=== PATIENT | male | born 1955 | race Caucasian/White ===

== ENCOUNTER 2019-02-06 16:19 | Inpatient (IN) ==
[2019-02-06] MEDS ORDERED: ACETAMINOPHEN 325 MG TAB PO PRN (16:37)
[2019-02-06] MEDS ORDERED: ALUMINUM/MAGNESIUM SUSP 30 ML UDC PO PRN (16:37)
[2019-02-06] MEDS ORDERED: POLYETHYLENE (MIRALAX) 17 GM PACK PO PRN (16:37)
[2019-02-06] MEDS ORDERED: NITROGLYCERIN SL 0.4 MG/TAB TAB SL PRN (16:37)
[2019-02-06] MEDS ORDERED: MAGNESIUM HYDROXIDE SUSP 30 ML UDC PO PRN (16:37)
[2019-02-06] MEDS ORDERED: ONDANSETRON INJ 2 MG/ML 2 ML VIAL IV PRN (16:37)
--- NOTE | 2019-02-06 17:31 | Cardiology Consultation ---
Date of Consultation February 06, 2019 Assessment & Plan (1) NSTEMI (non-ST elevated myocardial infarction): (2) Dyslipidemia: Repeat EKG has been ordered and is currently pending. Patient is received 324 mg of aspirin to be chewed. Will start metoprolol tartrate 12.5 mg twice daily and titrate dose to appropriate heart rate and blood pressure as tolerated. Atorvastatin will be started given dyslipidemia and coronary heart disease. The patient's symptoms started 4 days ago, but he still had waxing and waning chest discomfort as recently as yesterday. Is highly sensitive troponin T was elevated, and his troponin I will be trended this admission. At this time, we will keep him n.p.o. after midnight. Although he is several days out from his initial symptoms, based on the findings thus far, I anticipate the best course of action is to proceed with definitive coronary angiography tomorrow for revascularization of territory that is felt to be viable. There is no indication for emergent cardiac catheterization right now. Will start IV fluid with normal saline at 75 mL/h at 10 PM tonight for preprocedure hydration. Patient is agreeable with this plan. Case discussed with Dr Rodriguez who has seen the patient in the office and referred him to the hospital for further treatment. Case discussed with Katie Alexander PA-C of the [facility] service. History of Present Illness Attending Physician: Jed Richards MD History of Present Illness Rashard Jama is a 63 year old male seen in cardiology consultation per the request of Fritz Ramsey PA-C of the [facility] service in inpatient cardiology evaluation for the evaluation of a non ST segment elevation myocardial infarctions. 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 He describes himself as being physically active. He lifts weights 3 times per week and he walks daily typically 3 miles walking up and down hill. A week ago, last Monday, he was performing a "Lat pulldown" exercise and felt that he strained a muscle in between his shoulder blades. He continued to feel musculoskeletal discomfort there when he transitioned to a tricep exercise, and therefore he backed off. He still walks 3 miles that day and at that point felt well. The next day, 02/02/2019, he felt waxing and waning chest discomfort throughout the day at rest while watching television. The symptoms have persisted for the last week. He presented to his primary care provider yesterday 02/05/2019, and an EKG was performed at 8:10 AM with findings of sinus rhythm at 70 bpm with an age-indeterminate septal infarction pattern, Q waves noted in leads V1 and V2, with subtle inferior and lateral ST segment depression. Repeat EKG to be performed at this institution is currently pending. An Hs troponin T was performed as an outpt on 02/05/2019 which was elevated at 439 ng/ ml (normal 0-22 ng/ml). Patient was referred for outpatient cardiology assessment which took place this afternoon. At the time of presentation he was symptom-free. Resting echocardiogram performed today at 2:08 PM revealed severe hypokinesis to akinesis of the anterior and anteroseptal segments the mid apical levels with preserved LVEF in the range of 55 to 60%. No significant valvular pathology was noted. The patient was referred to the hospital for further assessment. During my review with him in room 2422 he was free of any chest pain. The patient's past medical history is notable for retention for which she takes amlodipine. His most recent lipid panel had been performed in August 2015 at which time his LDL cholesterol was elevated at 155 mg/dL. 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 Smoking Status: Former smoker Review of Systems Review of Systems: All systems reviewed & are unremarkable except as noted in HPI & below Physical Exam Physical Exam: Temp Pulse Resp BP Pulse Ox 36.8 C 83 18 134/91 97 02/06/19 17:08 02/06/19 17:08 02/06/19 17:08 02/06/19 17:08 02/06/19 17:08 Constitutional: WD/WN, vitals as above Neck: trachea midline, no thyromegaly Respiratory: normal respiratory effort, lungs clear to auscultation Cardiovascular: RRR, no murmur, no edema Extremities: no edema Skin: no rashes, warm and dry Neurologic: PERRL, EOMI, accommodation nl, no face palsy, no dysarthria
[2019-02-06 17:45] LABS: Basophils # (auto) 0.03 K/uL (0-0.2); Basophils % (auto) 0.3 %; Hematocrit (blood only) 42.2 % (42-52); Hemoglobin 15.6 g/dL (14.0-18.0); Immature Granulocytes # (auto) 0.04 K/uL (0.00-0.02); Immature Granulocytes % (auto) 0.4 %; Lymphocytes # (auto) 1.65 K/uL (1.2-3.4); Lymphocytes % (auto) 15.6 %; Mean Corpuscular Volume 84.2 fL (80-100); Mean Platelet Volume 9.3 fL (7.4-10.4); Monocytes # (auto) 0.41 K/uL (0.11-0.59); Monocytes % (auto) 3.9 %; Neutrophils # (auto) 8.42 K/uL (1.4-6.5); Neutrophils % (auto) 79.8 %; Platelet Count 325 K/uL (130-400); RDW Coefficient of Variation 13.2 % (11.5-14.5); RDW Standard Deviation 39.9 fL (36.4-46.3); Red Blood Count 5.01 M/uL (4.7-6.1); White Blood Count 10.55 K/uL (4.8-10.8)
[2019-02-06] MEDS ORDERED: ASPIRIN 81 MG CHEW PO ONE (17:45)
[2019-02-06] MEDS: PATIENT'S ALLERGY INFO NEEDS ENTERED SCH ×3 (17:53→20:30)
[2019-02-06 18:01] LABS: BUN Creatinine Ratio 15.5 (10-20); Calcium 9.1 mg/dl (8.5-10.1); Creatinine Clr Calc Pharmacy 65.2 ml/min; Est GFR (African American) 70.4; Est GFR (Non-African American) 60.7; Magnesium 2.2 mg/dl (1.8-2.4); Potassium 3.3 mmol/L (3.5-5.1)
[2019-02-06 18:05] LABS: Partial Thromboplastin Time 25.8 Seconds (21.0-31.0); Prothrombin Time 10.6 Seconds (9.0-12.0)
[2019-02-06 18:12] LABS: Bilirubin,Total 0.4 mg/dl (0.2-1); Globulin 4.2 gm/dl (2.5-4.0); Total Protein 8.2 gm/dl (6.4-8.2); Troponin I 0.381 ng/ml (0-0.045)
[2019-02-06] MEDS ORDERED: HEPARIN SODIUM/DEXTROSE 25,000 UNITS/500 ML BAG IV SCH (18:15)
--- NOTE | 2019-02-06 18:20 | XRay Report ---
XR chest 1V portable CLINICAL HISTORY: chest pain COMPARISON STUDY: No previous studies for comparison. FINDINGS: The bones soft tissues and hemidiaphragms are normal. The cardiomediastinal silhouette is n ormal. The lungs are clear. The pulmonary vasculature is normal. IMPRESSION: Negative chest. The above report was generated using voice recognition software. It may contain grammatical, syntax or spelling errors. Electronically signed by: Tristan Irby M.D. 02/06/2019 6:18 PM
[2019-02-06] MEDS ORDERED: POTASSIUM CHLORIDE 20 MEQ TABCR PO ONE (18:30)
--- NOTE | 2019-02-06 18:40 | History & Physical Report ---
Date of Service February 06, 2019 Assessment & Plan (1) NSTEMI (non-ST elevated myocardial infarction): This is a 63-year-old male who has a significant past medical history of HTN, HLD, allergic rhinitis who presents to [facility] as a direct admission from the cardiology office secondary to abnormal echocardiogram. Pt with hx of chest pain intermittent x 1 week Resting echo done as outpt revealed severe hypokinesis to akinesis of the anterior and anteroseptal segments the mid apical levels with preserved LVEF in the range of 55 to 60%. No significant valvular pathology was noted. Referred for direct admission repeat ECG NSR 70 bpm, septal infarct noted with q wave V2 ASA 324mg given x 1 Troponin elevated 0.381 Pt admitted to PCU ASA 324mg given start metoprolol tartrate 12.5mg bid High intensity statin initiated 40mg atorvastatin trend troponin I q6h IV heparin initiated NPO after midnight Cardiac cath to be performed in a.m. lipid panel, a1c in a.m. IVF 75cc/hr per cardiology (2) HTN (hypertension): blood pressure controlled on amlodipine (3) HLD (hyperlipidemia): diet controlled last lipid panel 2016 total chol 224, LDL 155 lipid panel in a.m. (4) DVT prophylaxis: continue heparin gtt SCD/TEDS Disposition: to be determined, likely d/c to home when able Follow up: PCP Dr. Bai upon discharge Patient was seen and examined in collaboration with Dr. Richards, please see addendum History of Present Illness Chief Complaint: Direct admission from cardiology office secondary to abnormal echocardiogram Primary Care Provider: Tapan Irvin MD This is a 63-year-old male who has a significant past medical history of HTN, HLD, allergic rhinitis who presents to [facility] as a direct admission from the cardiology office secondary to abnormal echocardiogram. Patient was initially seen by outpatient provider secondary to back pain for 1 week. There was also some concern for chest pain. A high-sensitivity troponin was ordered and a referral for echocardiogram. His troponin T was elevated at 439. Again referred for cardiac assessment which took place this afternoon. Resting echocardiogram performed today at 2:08pm revealed severe hypokinesis to akinesis of the anterior and anteroseptal segments the mid apical levels with preserved LVEF in the range of 55 to 60%. No significant valve pathology noted. Given above he was referred to hospital for direct admission. Currently patient is sitting up in bed and is asymptomatic. He reports 4 episodes of chest pain over the past week. Approximately a week ago he recalls performing a lat pull down exercise which he felt a muscle pull in his back. That next day he then noticed waxing and waning chest discomfort while at rest, radiated to back. He describes chest pain as a, "pulling sensation," not improved with Aleve or aspirin, made worse with movement, not exacerbated with deep breathing, no associated shortness of breath. His last episode was yesterday which lasted for approximately 15 minutes. He further denies any diaphoresis, palpitations, nausea, vomiting. Denies any recent illness, fever, chills, sweats, lightheadedness, dizziness, syncope, hemoptysis, abdominal pain, change in bowel or urinary habits. He is a very active individual walking 3 miles daily, including hills. He is retired but does maintain 5 acre property. He does not smoke or drink alcohol. Feels he is a pretty healthy balanced diet. He does have a family history of coronary artery disease in his father at the age of 70. Allergies Allergy/AdvReac Type Severity Reaction Status Date / Time No Known Allergies Allergy Unverified 02/06/19 17:37 Home Medications Home Medications Medication Instructions Recorded Confirmed Type amlodipine 10 mg PO DAILY 02/06/19 02/06/19 History fexofenadine [Nicole Allergy] 180 mg PO DAILY 02/06/19 02/06/19 History fluticasone propionate 2 spray INTRANASAL DAILY 02/06/19 02/06/19 History meloxicam 15 mg PO DAILY 02/06/19 02/06/19 History montelukast [Singulair] 10 mg PO DAILY 02/06/19 02/06/19 History Past Med/Surg History Medical History HLD (hyperlipidemia) HTN (hypertension) Surgical History History of tonsillectomy and adenoidectomy History of shoulder surgery Family History Mother Rheumatoid arthritis Father Myocardial infarction, Onset Age: 70 Social History Preferred Language: Mexican Communication Ability: Effective Certified Industrial Hygienist Required: No Beliefs That Will Affect Care: None Current Living Situation: Alone 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 Physical Exam Physical Exam: Constitutional: WD/WN, M, vitals as above, NAD, sitting up in bed, pleasant, conversing easily Head: Normocephalic, Atraumatic Eyes: PERRL, conjunctivae normal, anicteric sclerae ENMT: external ear and nose normal, oropharynx normal Neck: trachea midline, no thyromegaly normal visual inspection Respiratory: normal respiratory effort, lungs clear to auscultation, no wheeze, rales, rhonchi. Normal insp/exp effort, no accessory muscle use Cardiovascular: RRR, no murmur, no edema Vessels: no JVD or carotid bruit Chest: normal inspection of chest Abdomen: normal bowel sounds, soft, nontender, no hepatosplenomegaly Musculoskeletal: no cyanosis or clubbing, extremities motor strength 5/5 Skin: no rashes, warm and dry normal turgor Neurologic: PERRL, EOMI, accommodation nl, no face palsy, no dysarthria CN's II-XI intact bilaterally and moves all extremities Psychiatric: A+Ox3, euthymic affect Lymphatic: no cervical or axillary lymphadenopathy : deferred Results & Data Vital Signs (Past 12 Hours) Vital Signs Temp Pulse Pulse Resp BP Pulse Ox 02/06/19 17:08 36.8 C 83 18 134/91 97 02/06/19 17:03 90 Laboratory Results Short CBC 02/06/19 Range/Units 17:34 WBC 10.55 (4.8-10.8) K/uL Hgb 15.6 (14.0-18.0) g/dL Hct 42.2 (42-52) % Plt Count 325 (130-400) K/uL BMP 02/06/19 17:34 Sodium 140 Potassium 3.3 L Chloride 106 Carbon Dioxide 26 BUN 20 H Creatinine 1.26 Glucose 159 H Calcium 9.1 Cardiac Enzymes 02/06/19 Range/Units 17:34 Troponin I 0.381 H* (0-0.045) ng/ml Liver Function 02/06/19 Range/Units 17:34 Total Bilirubin 0.4 (0.2-1) mg/dl AST 20 (15-37) U/L ALT 30 (12-78) U/L Alkaline Phosphatase 62 (45-117) U/L Albumin 4.0 (3.4-5.0) gm/dl Diagnostic Findings CXR: IMPRESSION: Negative chest. Medications Administered Discontinued Medications Aspirin (Aspirin Chew) 324 mg PO ONE ONE Stop: 02/06/19 17:46 Last Admin: 02/06/19 17:58 Dose: 324 mg Documented by: [id number] Miscellaneous Information (Patient's Allergy Info Needs Entered) 1 ea N/A Q30M BENNY Stop: 03/08/19 16:44 Last Admin: 02/06/19 17:54 Dose: Not Given Documented by: [id number] Admin: 02/06/19 17:54 Dose: Not Given Documented by: [id number] Admin: 02/06/19 17:53 Dose: 1 ea Documented by: [id number] ECG Additional Comments: Per Dr. Washington: "EKG performed 02/06/2019 at 1748 and reviewed independently reveals normal sinus rhythm at 70 bpm, age-indeterminate septal infarction noted with Q waves in lead V2, mild lateral repolarization changes and T wave flattening, improved to a subtle degree compared to the outpatient EKG performed yesterday 02/05/2019. There is no ST segment elevation" Code Status & VTE Plan Code Status Full Code VTE Prophylaxis Plan VTE Prophylaxis will be ordered: Yes Supervising Physician Co-Signing Physician Notes Patient is a 63-year-old male with history of hypertension, hyperlipidemia and other problems presents for evaluation of abnormal echocardiogram. Patient is a direct admit to [facility] on recommendations from his associate genetics professor today. Patient states having intermittent retrosternal chest pain 1 week ago and had elevated high sensitivity troponin which prompted to get echocardiogram. Patient had been evaluated by his associate genetics professor as outpatient and resting echo suggestive of severe hypokinesis to akinesis of the anterior and antral septal segments. Patient is sent for further management of NSTEMI. Patient admits that his chest discomfort decreases with aspirin. Currently he is chest pain-free. Denies any associated shortness of breath. On exam patient is moderately built and nourished, normocephalic atraumatic, lungs are clear to auscultation, S1-S2, no murmur, abdomen soft nontender, grossly no focal neurological deficits, no pedal edema. Patient is admitted for management of NSTEMI. EKG showed no signs of ST elevation. Patient is started on aspirin, Lipitor, metoprolol and IV heparin. Will check lipid panel in a.m. Keep him n.p.o. for possible cardiac catheterization in a.m. Appreciate cardiology input. I personally reviewed the record. Patient is interviewed and examined at bedside. Patient's care is coordinated with Caryl Mcdowell PA-C. Please refer to the documentation above for details of patient's presentation and for discussion of other issues.
[2019-02-06] MEDS: METOPROLOL TARTRATE 25 MG TAB PO SCH (18:59)
[2019-02-06] MEDS: ATORVASTATIN 40 MG TAB PO SCH (19:01)
[2019-02-06] MEDS ORDERED: HEPARIN IV BOLUS 6,000 UNITS in SYRINGE 0 ML IV ONE (19:15)
[2019-02-06] MEDS ORDERED: POTASSIUM CHLORIDE 20 MEQ TABCR PO STA (19:38)
[2019-02-06] MEDS ORDERED: MONTELUKAST SODIUM 10 MG TABLET PO SCH (21:00)
[2019-02-06] MEDS ORDERED: ATORVASTATIN 20 MG TAB PO SCH (21:00)
[2019-02-06] MEDS: SODIUM CHLORIDE 0.9% 1000ML 1,000 ML IV SCH (22:46)
[2019-02-07 01:34] LABS: Hematocrit (blood only) 37.1 % (42-52); Hemoglobin 13.6 g/dL (14.0-18.0); Mean Corpuscular Hgb Conc 36.7 g/dL (32-36); Mean Corpuscular Volume 84.3 fL (80-100); Mean Platelet Volume 9.5 fL (7.4-10.4); Platelet Count 290 K/uL (130-400); RDW Standard Deviation 39.8 fL (36.4-46.3); White Blood Count 12.57 K/uL (4.8-10.8)
[2019-02-07 01:53] LABS: BUN Creatinine Ratio 18.9 (10-20); Calcium 8.7 mg/dl (8.5-10.1); Creatinine Clr Calc Pharmacy 70.8 ml/min; Est GFR (African American) 77.8; Est GFR (Non-African American) 67.1; Potassium 3.2 mmol/L (3.5-5.1)
[2019-02-07 01:57] LABS: Partial Thromboplastin Ratio 1.9
[2019-02-07 02:05] LABS: Partial Thromboplastin Time 52.5 Seconds (21.0-31.0)
[2019-02-07 05:56] LABS: Partial Thromboplastin Ratio 1.7
[2019-02-07 06:05] LABS: Partial Thromboplastin Time 45.9 Seconds (21.0-31.0)
[2019-02-07] MEDS ORDERED: HEPARIN IV BOLUS 3,000 UNITS in SYRINGE 0 ML IV ONE (06:15)
[2019-02-07 07:03] LABS: Estimated Average Glucose 126 mg/dl
[2019-02-07] MEDS: METOPROLOL TARTRATE 25 MG TAB PO SCH (08:01)
[2019-02-07] MEDS: ATORVASTATIN 40 MG TAB PO SCH (08:01)
[2019-02-07] MEDS ORDERED: FLUTICASONE PROPIONATE NA SPR 16 GM BTL SCH (09:00)
[2019-02-07] MEDS ORDERED: AMLODIPINE BESYLATE 5 MG TAB PO SCH (09:00)
[2019-02-07] MEDS ORDERED: ASPIRIN 81 MG ECTAB PO SCH (09:00)
--- NOTE | 2019-02-07 09:27 | Cardiology Progress Note ---
Date of Service February 07, 2019 Assessment & Plan (1) NSTEMI (non-ST elevated myocardial infarction): Continue ASA, metoprolol, amlodipine, atorvastatin. On UF heparin infusion. Plan for cardiac cath today. Has received NS at 75 mg/ hour overnight for hydration in anticipation of cardiac cath. (2) HTN (hypertension): continue metoprolol and amlodipine (3) Hypokalemia: Replace orally (4) DVT prophylaxis: on heparin. Subjective CC: follow up chest pain Subjective: David reports feeling well overnight last night and this am. No CP. Telemetry reveals SR without arrhythmia. Review of Systems Review of Systems: All systems reviewed & are unremarkable except as noted in HPI & below Physical Exam Physical Exam: Temp Pulse Resp BP Pulse Ox 36.5 C 66 18 135/76 98 02/07/19 07:13 02/07/19 07:13 02/07/19 07:13 02/07/19 07:13 02/07/19 07:13 Constitutional: WD/WN, vitals as above Respiratory: normal respiratory effort, lungs clear to auscultation Cardiovascular: RRR, no murmur, no edema Gastrointestinal (Abdomen): normal bowel sounds, soft, nontender, no hepatosplenomegaly Skin: no rashes, warm and dry Neurologic: patellar DTR's 2+ bilat, sensation intact Results & Data Laboratory Results Cardiac Enzymes 02/06/19 02/06/19 02/07/19 Range/Units 17:34 23:43 05:14 AST 20 (15-37) U/L Troponin I 0.381 H* 0.471 H* 0.616 H* (0-0.045) ng/ml Coagulation 02/06/19 02/07/19 02/07/19 Range/Units 17:34 01:17 05:14 PT 10.6 (9.0-12.0) Seconds APTT 25.8 52.5 H* 45.9 H* (21.0-31.0) Seconds Lipids 02/07/19 Range/Units 01:17 Triglycerides 101 (0-150) mg/dl Cholesterol 165 (0-200) mg/dl HDL Cholesterol 42 mg/dl Cholesterol/HDL Ratio 4 CBC 02/06/19 02/07/19 Range/Units 17:34 01:17 WBC 10.55 12.57 H (4.8-10.8) K/uL RBC 5.01 4.40 L (4.7-6.1) M/uL Hgb 15.6 13.6 L (14.0-18.0) g/dL Hct 42.2 37.1 L (42-52) % Plt Count 325 290 (130-400) K/uL Neut # (Auto) 8.42 H (1.4-6.5) K/uL Lymph # (Auto) 1.65 (1.2-3.4) K/uL Aiken # (Auto) 0.41 (0.11-0.59) K/uL Eos # (Auto) 0.00 (0-0.5) K/uL Baso # (Auto) 0.03 (0-0.2) K/uL Comprehensive Metabolic Panel 02/06/19 02/07/19 Range/Units 17:34 01:17 Sodium 140 141 (136-145) mmol/L Potassium 3.3 L 3.2 L (3.5-5.1) mmol/L Chloride 106 107 (98-107) mmol/L Carbon Dioxide 26 27 (21-32) mmol/L BUN 20 H 22 H (7-18) mg/dl Creatinine 1.26 1.16 (0.6-1.4) mg/dl Glucose 159 H 132 H (70-99) mg/dl Calcium 9.1 8.7 (8.5-10.1) mg/dl AST 20 (15-37) U/L ALT 30 (12-78) U/L Alkaline Phosphatase 62 (45-117) U/L Total Protein 8.2 (6.4-8.2) gm/dl Albumin 4.0 (3.4-5.0) gm/dl Intake and Output 02/06/19 02/07/19 02/07/19 22:59 06:59 14:59 Intake Total 120 / 414.75 294.75 / 414.75 Output Total 650 / 1850 1200 / 1850 200 / 200 Balance -530 / -1435.25 -905.25 / -1435.25 -200 / -200 Intake: IV 294.75 / 294.75 HEPARIN SODIUM/DEXTROSE 25,000 294.75 / 294.75 units In 500 ml @ 1,500 UNITS/ HR 30 mls/hr IV .[id number] BENNY Rx #:[id number] Oral 120 / 120 0 / 120 Output: Urine 650 / 1850 1200 / 1850 200 / 200 Other: Other Intake Source npo Weight 90.3 kg 90.7 kg Diagnostic Findings EKG this am reveals SR with age undetermined septal infarct patter in lead V2, and lateral repolarization changes (mild ST depression) Medications Administered Current Inpatient Medications Acetaminophen (Tylenol) 650 mg PO Q4H PRN PRN Reason: Pain or Fever Stop: 03/08/19 16:36 Al Hydrox/Mg Hydrox/Simethicone (Maalox) 15 ml PO Q4H PRN PRN Reason: Dyspepsia Stop: 03/08/19 16:36 Amlodipine Besylate (Norvasc) 10 mg PO DAILY [facility] Stop: 03/09/19 08:59 Last Admin: 02/07/19 08:02 Dose: 10 mg Documented by: Aspirin (Ecotrin Ectab) [facility] [place] Stop: 03/09/19 08:59 Last Admin: 02/07/19 08:02 Dose: 81 mg Documented by: Atorvastatin Calcium (Lipitor) 40 [facility] [place] Stop: 03/08/19 18:29 Last Admin: 02/07/19 08:01 Dose: 40 mg Documented by: Fluticasone Propionate (Flonase) 2 sprays NA DAILY [facility] Stop: 03/09/19 08:59 Last Admin: 02/07/19 08:03 Dose: 2 sprays Documented by: Heparin Sodium/Dextrose (Heparin Sodium/Dextrose) 25,000 units in 500 mls @ 30 mls/hr IV .[id number] [facility]; Protocol Stop: 03/08/19 18:14 Last Titration: 02/07/19 06:10 Dose: 1,500 units/hr, 30 mls/hr Documented by: Sodium Chloride (Nss 1000ml) 1,000 mls @ 75 mls/hr IV .[id number] [facility] Stop: 03/08/19 21:59 Last Admin: 02/06/19 22:46 Dose: 75 mls/hr Documented by: Magnesium Hydroxide (Milk Of Magnesia) 30 ml PO Q12H PRN PRN Reason: Constipation Stop: 03/08/19 16:36 Metoprolol Tartrate (Lopressor) 12.5 mg PO BID [facility] Stop: 03/08/19 17:59 Last Admin: 02/07/19 08:01 Dose: 12.5 mg Documented by: Montelukast Sodium (Singulair) 10 mg PO HS BENNY Stop: 03/08/19 20:59 Last Admin: 02/06/19 19:02 Dose: 10 mg Documented by: Nitroglycerin (Nitrostat) 0.4 mg SL UD PRN PRN Reason: Chest Pain Stop: 03/08/19 16:36 Last Admin: 02/06/19 20:00 Dose: 0.4 mg Documented by: Ondansetron HCl (Zofran) 4 mg IV Q6H PRN PRN Reason: Nausea Stop: 03/08/19 16:36 Polyethylene Glycol (Miralax Powder Packet) 17 gm PO DAILY PRN PRN Reason: Constipation Stop: 03/08/19 16:36 Potassium Chloride (Klor-Con M20) 40 meq PO NOW STA Stop: 02/07/19 09:23
[2019-02-07] MEDS ORDERED: POTASSIUM CHLORIDE 20 MEQ TABCR PO ONE (09:45)
[2019-02-07] MEDS ORDERED: NiCARDipine HCL INJ 2.5 MG/ML 10 ML AMP ONE (11:08)
[2019-02-07] MEDS ORDERED: NITROGLYCERIN/D5W 100MCG/ML 20ML SYR ONE (11:09)
[2019-02-07] MEDS ORDERED: HEPARIN (PORCINE) 1000 UNIT/ML 10 ML (CATH LAB USE ONLY) ONE (11:10)
[2019-02-07] MEDS ORDERED: fentaNYL citrate 100 MCG/2 ML VIAL ONE ×2 (11:10→12:08)
[2019-02-07] MEDS ORDERED: MIDAZOLAM HCL 1 MG/ML 2ML VIAL ONE ×2 (11:10→12:08)
--- NOTE | 2019-02-07 11:44 | Cardiology Consultation ---
Date of Consultation February 07, 2019 Assessment & Plan (1) NSTEMI (non-ST elevated myocardial infarction): Patient here with acute coronary syndrome. He has had elevated risk of adverse cardiac events and agree with proceeding with cardiac catheterization. Discussed risk, benefits, alternatives of procedure with patient and willing to proceed. Plan to perform procedure via right radial artery. Further recommendations pending findings. History of Present Illness Attending Physician: Everton Olivas MD History of Present Illness Mr. Wiley scott 63-year-old man with a history of hypertension admitted with new onset chest pain and elevated troponin. Patient being cared for by Dr. Washington from [facility] cardiology. Found to have EKG changes and apical wall motion abnormalities on echo and being treated for NSTEMI. Early invasive approach recommended and interventional cardiology consulted for cardiac catheterization. Allergies Allergy/AdvReac Type Severity Reaction Status Date / Time No Known Allergies Allergy Unverified 02/06/19 17:37 Home Medications Home Medications Medication Instructions Recorded Confirmed Type amlodipine 10 mg PO DAILY 02/06/19 02/06/19 History fexofenadine [Nicole Allergy] 180 mg PO DAILY 02/06/19 02/06/19 History fluticasone propionate 2 spray INTRANASAL DAILY 02/06/19 02/06/19 History montelukast [Singulair] 10 mg PO DAILY 02/06/19 02/06/19 History acetaminophen [Tylenol Extra 1,000 mg PO Q8H PRN #60 tab 02/07/19 Rx Strength] aspirin [Ecotrin Low Strength] 81 mg PO QAM #30 tab 02/07/19 Rx atorvastatin 80 mg PO DAILY #30 tab 02/07/19 Rx metoprolol succinate 25 mg PO QAM #30 tab 02/07/19 Rx potassium chloride 20 meq PO DAILY #30 tab 02/07/19 Rx Patient History Medical History HLD (hyperlipidemia) HTN (hypertension) Surgical History History of tonsillectomy and adenoidectomy History of shoulder surgery Family History Mother Rheumatoid arthritis Father Myocardial infarction, Onset Age: 70 Social History Preferred Language: Maldivian Communication Ability: Effective Classroom Instructional Aide Required: No Beliefs That Will Affect Care: None Current Living Situation: Alone 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 No JVD. Lungs: Clear to auscultation bilaterally, no rhonchi or wheezes Cardiac: Regular rate and rhythm, no murmurs, rubs or gallops. Vascular: 2+ radial, DP and PT pulses. No varicosities. Abdomen: Soft, nontender, nondistended, positive bowel sounds. Extremities: Well perfused, no peripheral edema Skin: No rashes or lesions. Neuro: Nonfocal Psych: Alert orient x3, normal affect and mood Results & Data Vital Signs (Past 12 Hours) Vital Signs Temp Pulse Pulse Resp BP Pulse Ox 02/07/19 11:11 36.5 C 58 L 18 142/82 H 99 02/07/19 07:13 36.5 C 66 18 135/76 98 02/07/19 02:59 36.6 C 62 17 128/79 97 02/07/19 01:27 76 PG Care Time/CCT Total # of Minutes Spent Total Time Spent with Patient: Total time spent is greater than 50% in coordination of care (as documented) at patient's floor/unit and/or counseling patient:
--- NOTE | 2019-02-07 11:45 | Pre Anesthesia Assessment ---
Date of Service February 07, 2019 Pre Sedation Assessment Vital Signs Temp Pulse Pulse Resp BP Pulse Ox 02/07/19 11:11 36.5 C 58 L 18 142/82 H 99 02/07/19 07:13 36.5 C 66 18 135/76 98 02/07/19 02:59 36.6 C 62 17 128/79 97 02/07/19 01:27 76 02/06/19 23:39 36.6 C 66 19 153/82 H 98 02/06/19 20:00 36.9 C 70 18 125/70 95 02/06/19 19:23 36.8 C 70 18 138/71 95 02/06/19 17:08 36.8 C 83 18 134/91 97 02/06/19 17:03 90 Cardiovascular RRR, no murmur, no edema Pre-Sedation Airway Assessment Smoking Status: Never smoker Hx Sleep Apnea: No Hx Difficult Intubation: No Short, Thick Neck: No Thyromental Distance: > or= 3.5 Finger Breadths Oral Cavity: + WNL Mallampati Class: III Procedure Planning Contraindications for Sedation: none Current Medications Reviewed: Yes Notes The planned sedation has been discussed with the patient. Informed Consent was obtained. I have identified the patient, determined the appropriateness of sedation and have assessed the patient immediately prior to the procedure. All medicine(s) and interventions are by my order.
--- NOTE | 2019-02-07 12:50 | Post Anesthesia Assessment ---
Date of Service February 07, 2019 Post Sedation Assessment Vital Signs Temp Pulse Pulse Resp BP Pulse Ox 02/07/19 11:11 36.5 C 58 L 18 142/82 H 99 02/07/19 07:13 36.5 C 66 18 135/76 98 02/07/19 02:59 36.6 C 62 17 128/79 97 02/07/19 01:27 76 02/06/19 23:39 36.6 C 66 19 153/82 H 98 02/06/19 20:00 36.9 C 70 18 125/70 95 02/06/19 19:23 36.8 C 70 18 138/71 95 02/06/19 17:08 36.8 C 83 18 134/91 97 02/06/19 17:03 90 Recovery Score Activity: Moves 4 extremities Respiration: Deep Breath/Cough Circulation: +/-20% PreAnes Value Consciousness: Fully Awake Oxygen Saturation: O2 needed for >90% Discharge Sedation Level of Care: Fast Track Phase II Post Sedation Plan On clinical assessment, the patient appears to have tolerated the sedation without complications. Patient is recovering as anticipated. Patient will continue to be monitored by nursing and may be discharged when sedation discharge criteria are met per below protocol. Upon Completions of procedure and additional 15 minutes continue every 5 minute vital signs and the P.A.R. score; then discharge to a Phase I or Fast Track to Phase II per the following guidelines: * Discharge Patient to appropriate Phase II area if PAR is 8 or greater or return to pre- procedure baseline. The post - procedure orders will be as directed. * If PAR score is less than 8 or not return to pre-procedure baseline then patient will follow Phase I monitoring till PAR is reached for Phase II. The Phase I may be done in procedure room or may call to secure a Phase I area. * If naloxone or flumazenil are used for reversal, hold in Phase I for continued monitoring from when last reversal dose was given for a minimum of 60 minutes or longer pending the nurse and/or physician discretion of patient condition before discharge to Phase II. Please call the Sedation Physician to re-evaluate and complete post-note for discharge to Phase II area. Do NOT discharge from procedure sedation or Phase 1 until post- sedation evaluation note is complete by procedure /sedation MD Sedation Discharge Instructions to be given to the patient at discharge to home.
--- NOTE | 2019-02-07 13:06 | Cardiac Catheterization ---
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 Cardiac Status Clinical evaluation leading to the procedure CAD Presenation: Non STEMI Anginal Classification: CCS IV Heart Failure: No Cardiogenic Shock within 24 Hours: No Cardiac Arrest within 24 Hours: No Imaging Studies Past 6 Months: Yes Diagnostic Physicians Name: Chance Tinajero MD Status: Elective Closure Device Percutaneous Entry Location: Radial Closure Device: Radial Band Recommendations: CABG Intraprocedure Events Significant Disection: No Perforation: No Cardiac Cath Procedure Full Procedure Date February 07, 2019 Pre-Procedure Diagnosis Pre-Procedure Diagnosis: Non STEMI AUC Score AUC Score: 7 Post-Procedure Diagnosis Post-Procedure Diagnosis: Severe CAD and Normal Intracardiac Pressures Procedure(s) Performed Procedure(s) Performed: Coronary Angiography, Left Heart Cath and IVUS Cement Mixer Chance Tinajero MD Civil Service Worker(s) Adryan Estimated Blood Loss Estimated Blood Loss: 10 Medication(s) Medication(s): Fentanyl, Heparin, Lidocaine 1%, Nicardipine, Nitroglycerin and Versed Summary of Findings Indication: NSTEMI Access: 6 Fr right radial artery Catheters: [place], EBU 3.5 guide Findings: LM -40% distal left main angiographically LAD -50 to 60% ostial to proximal LAD, 80% mid LAD at takeoff of large septal, distal luminal irregularities. Large 2nd diagonal subtotally occluded proximally. Distal vessel fills partially via left to right collaterals Circumflex -40-50% diffuse ostial/proximal disease. OM3 without significant disease. RCA -moderate caliber vessel, dominant, 30% ostial, diffuse 30-40% proximal to mid diffuse disease. 70% mid right PDA LVEDP -15 -- IVUS -- LM cannulated with EBU 3.5 guide Whisper wire placed into distal LAD Thread Spooler 50 wire placed into circumflex IVUS placed into mid LAD -- pullback revealed diffuse, calcified disease extending from proximal LAD back into LM. Severe ostial LAD with MLA < 4.0 mm2. Severe distal LM disease at bifurcation - MLA 4.9 mm2. Moderate eccentric proximal/mid LM plaque. Attempted to place IVUS catheter into circumflex but unable to pass around bend/ostium of circumflex. Post procedure angiography revealed no complications. Arterial Closure: TR band Summary: 1. Severe multivessel coronary artery disease -50% distal left main (IVUS at bifurcation 4.9 mm) Severe ostial LAD (MLA less than 4 mm), mid LAD 80% Subtotally occluded proximal 2nd diagonal, partially fills distally with [id number] collaterals 70% mid right PDA 2. Normal intracardiac filling pressure Recommendations: Recommend evaluation by the surgery for possible CABG Hemodynamics Rest Ao:: 107/60/82 Final Ao: 135/74/99 LV: -- Recommendations Recommendations: CABG Specimens Specimens: None Radiation Exposure (mGy) 2649 Contrast (mls) 150 Fluids (cc crystalloids) Fluids (cc crystalloids): 70 Drains Drains: none Anesthesia moderate Procedural Complication(s) None Disposition PCU
[2019-02-07] MEDS ORDERED: SODIUM CHLORIDE 0.9% 1000ML 1,000 ML IV SCH ×2 (13:15→22:00)
[2019-02-07] MEDS: SODIUM CHLORIDE 0.9% 1000ML 1,000 ML IV SCH (13:42)
[2019-02-07 14:14] LABS: Partial Thromboplastin Ratio > 5.1
[2019-02-07 14:56] LABS: Partial Thromboplastin Time > 139.0 Seconds (21.0-31.0)
--- NOTE | 2019-02-07 15:12 | Communication Note ---
Date of Service: February 07, 2019 Mr Jama Underwent cardiac catheterization at [facility] today for evaluation of a non-ST segment elevation myocardial infarct believed to have taken place on 02/02/2019. He has been found to have distal left main and multivessel coronary artery disease including a 50% distal left main stenosis that was found to be significant by intravascular ultrasound evaluation, with an area of 4.9 mm, an 80% mid LAD stenosis, subtotal occlusion of the second diagonal branch of the LAD which is a moderate sized vessel, and a 60-70% RPDA stenosis. I called and discussed the patient's case with Dr Anne of [facility] surgery by phone. The Patient adamantly declines further inpatient evaluation and is eager for discharge. He therefore declines hospital to hospital transfer for inpatient CT surgery consultation. Dr Anne offered to accommodate the patient with an outpatient appointment for consultation tomorrow, 02/08/19 or Monday02/11/19. I returned to the patient's bedside and discussed these options with him and his daughter , Li. Patient declined appointment for tomorrow and instead tells me he prefers 02/11/19. He is aware of the risk of delaying care ,including recurrent myocardial infarction with resultant severe disability and , however he prefer to go home and be seen on Monday. He is aware to call EMS should he have recurrence of symptoms. Discharge medications: Aspirin 81 mg daily Metoprolol succinate 25 mg daily. Amlodipine 10 mg by mouth daily. Atorvastatin 80 mg by mouth daily Potassium chloride 20 mg once by mouth daily Sublingual nitroglycerin 0.4 mg as needed for chest pain Josh Washington,
--- NOTE | 2019-02-07 16:36 | Communication Note ---
Date of Service: February 07, 2019 Admitted yesterday with chest pain, abnormal EKG, elevated troponin. EKG showed sinus rhythm and anterolateral ST changes suggesting ischemia. Echocardiogram performed in clinic the day of admission demonstrated severe hypokinesis to akinesis of the anterior and anteroseptal segments with overall LVEF of 55/60%. Cardiology consulted and patient was seen by Dr. Washington. Patient received aspirin, heparin, metoprolol, statin. Peak troponin I 0.616 and subsequently trended downward. Cardiac catheterization performed by Dr. Tinajero. Summary of cath findings: LM -40% distal left main angiographically LAD -50 to 60% ostial to proximal LAD, 80% mid LAD at takeoff of large septal, distal luminal irregularities. Large 2nd diagonal subtotally occluded pro ximally. Distal vessel fills partially via left to right collaterals Circumflex -40-50% diffuse ostial/proximal disease. OM3 without significant disease. RCA -moderate caliber vessel, dominant, 30% ostial, diffuse 30-40% proximal to mid diffuse disease. 70% mid right PDA Given multivessel coronary disease referral to [facility] recommended for evaluation for CABG. Please refer to Dr. Washington's documentation regarding his discussions with patient. In summary, patient declined emergent transfer to [facility] and also declined visit with CT surgery as outpatient tomorrow. He does agree to see CT surgery on Sunday 02/11. Dr. Washington explained the risks of delayed revascularization. Patient is very anxious to go home this afternoon. He needs a few days to sort things out and take care of some matters. Patient was upset and very anxious to go home immediately. He was not examined today by the undersigned; please refer to cardiology notes for today's physical exam. Patient discharged on aspirin, metoprolol, statin, nitroglycerin. Dual antiplatelet therapy with aspirin and clopidogrel was considered, but felt that risk up with the benefits in light of anticipated CABG. Patient was instructed to call 911 if he has chest pain that is not promptly relieved by rest and/or nitroglycerin.
--- NOTE | 2019-02-08 04:08 | Discharge Summary ---
Date of Service Date of Admission: 02/06/19 Date of Discharge: 02/07/19 Admission HPI Per Admitting Provider This is a 63-year-old male who has a significant past medical history of HTN, HLD, allergic rhinitis who presents to [facility] as a direct admission from the cardiology office secondary to abnormal echocardiogram. Patient was initially seen by outpatient provider secondary to back pain for 1 week. There was also some concern for chest pain. A high-sensitivity troponin was ordered and a referral for echocardiogram. His troponin T was elevated at 439. Again referred for cardiac assessment which took place this afternoon. Resting echocardiogram performed today at 2:08pm revealed severe hypokinesis to akinesis of the anterior and anteroseptal segments the mid apical levels with preserved LVEF in the range of 55 to 60%. No significant valve pathology noted. Given above he was referred to hospital for direct admission. Currently patient is sitting up in bed and is asymptomatic. He reports 4 episodes of chest pain over the past week. Approximately a week ago he recalls performing a lat pull down exercise which he felt a muscle pull in his back. That next day he then noticed waxing and waning chest discomfort while at rest, radiated to back. He describes chest pain as a, "pulling sensation," not improved with Aleve or aspirin, made worse with movement, not exacerbated with deep breathing, no associated shortness of breath. His last episode was yesterday which lasted for approximately 15 minutes. He further denies any diaphoresis, palpitations, nausea, vomiting. Denies any recent illness, fever, chills, sweats, lightheadedness, dizziness, syncope, hemoptysis, abdominal pain, change in bowel or urinary habits. He is a very active individual walking 3 miles daily, including hills. He is retired but does maintain 5 acre property. He does not smoke or drink alcohol. Feels he is a pretty healthy balanced diet. He does have a family history of coronary artery disease in his father at the age of 70. Principal Diagnosis non-ST elevation myocardial infarction multivessel coronary artery disease Discharge Data Allergies Allergy/AdvReac Type Severity Reaction Status Date / Time No Known Allergies Allergy Unverified 02/06/19 17:37 Consultations 02/06/19 16:37 Consult Cardiology Routine 02/07/19 09:27 Consult Cardiac Catheterization Routine Procedures Performed Operation Date: 02/07/19 11:30 Actual Procedures p Cath, Left with Cors and Vent - Hong Tinajero MD s Cineradiography w/Routine Exam - Hong Tinajero MD s IVUS Coronary Single Vessel - MD angie Zavaleta IVUS Coronary each ADDL Vessel - Hong Tinajero MD Ordered Studies 02/07/19 11:13 CL Cath Imgs for PACS use only Routine Hospital Course (1) NSTEMI (non-ST elevated myocardial infarction): Admitted with chest pain, abnormal EKG, elevated troponin. EKG showed sinus rhythm and anterolateral ST changes suggesting ischemia. Echocardiogram performed in clinic the day of admission demonstrated severe hypokinesis to akinesis of the anterior and anteroseptal segments with overall LVEF of 55/60%. Cardiology consulted and patient was seen by Dr. Washington. Patient received aspirin, heparin, metoprolol, statin. Peak troponin I 0.616 and subsequently trended downward. Cardiac catheterization performed by Dr. Tinajero. Summary of cath findings: LM -40% distal left main angiographically LAD -50 to 60% ostial to proximal LAD, 80% mid LAD at takeoff of large septal, distal luminal irregularities. Large 2nd diagonal subtotally occluded proximally. Distal vessel fills partially via left to right collaterals Circumflex -40-50% diffuse ostial/proximal disease. OM3 without significant disease. RCA -moderate caliber vessel, dominant, 30% ostial, diffuse 30-40% proximal to mid diffuse disease. 70% mid right PDA Given multivessel coronary disease referral to [facility] recommended for evaluation for CABG. Please refer to Dr. Washington's documentation regarding his discussions with patient. In summary, patient declined emergent transfer to [facility] and also declined visit with CT surgery as outpatient 02/08. He did agree to see CT surgery on Sunday 02/11. Dr. Washington explained the risks of delayed revascularization. Patient discharged on aspirin, metoprolol, statin, nitroglycerin. Dual antiplatelet therapy with aspirin and clopidogrel was considered, but felt that risk up with the benefits in light of anticipated CABG. Patient was instructed to call 911 if he has chest pain that is not promptly relieved by rest and/or nitroglycerin. Total Time Total Time Spent Total Time Spent (In Minutes): 25 Discharge Plan Discharge Items Patient Disposition: Home - Self-Care Reason For Visit: chest pain Discharge Diagnosis: heart attack Condition: Fair Discharge Goals: Decrease discomfort and Improve disease control Activity: As commented below Activity Comment: light activity only Non-emergency contact: Primary Care Provider, Hospitalist and Instrument Maker Call non-emergency contact if: you have any medication questions and your symptoms worsen Follow-up/Referrals: Tapan Irvin MD [Primary Care Provider] - Diet: Heart Healthy Addtl Provider Instructions: MEDICATION CHANGES: aspirin 81 mg daily helps prevent heart attacks metoprolol succinate (Toprol XL) 25 mg daily for heart and blood pressure atorvastatin (Lipitor) 80 mg daily for cholesterol potassium chloride 20 mEq daily for low potassium level nitroglycerin 0.4 mg under tongue as needed for chest pain call 911 if no relief Extra Strength Tylenol 2 pills every 8 hrs as needed for muscle / joint pain STOP meloxicam (Mobic) can increase risk of heart attack or stroke SUMMARY OF TEST RESULTS: Blood tests indicated that you had a heart attack, but there was not severe damage to the heart muscle. Heart catheterization showed blockage in multiple coronary arteries, some severe. LDL cholesterol was 103. PENDING TEST RESULTS: none RECOMMENDATIONS FOR FOLLOW-UP: CARDIAC SURGERY [facility] 02/11/2019 8:45 AM Vasile Anne MD OTHER INSTRUCTIONS: Seek medical attention if you have: * temperature above 101 * chest pain or trouble breathing * abdominal pain, nausea, vomiting * diarrhea, dark stools or bloody stools * any unanswered questions or concerns Call 911 if symptoms are severe. Please take good care of yourself. Call if you have any questions or problems. You can reach a [facility] hospitalist on duty at [facility] 24 hours a day by calling [phone]. My cell # is [phone]. ACTIVITY RECOMMENDATIONS: Excess manipulation of the wrist should be avoided for the next 24-48 hours. * No lifting over 2 pounds (approximately a 1/2 gallon of milk) with the utilized arm for 24 hours. * No strenuous activity such as bowling or tennis for 3 days. * Keep the site of the procedure covered with a bandage for 24 hours. *You may shower the day after the procedure. Do not take a tub bath or submerge the puncture site in water for the next 3 days. *Do not operate any motorized equipment for 3 days. SPECIAL CARE INSTRUCTIONS: The site may be slightly bruised and sore following your procedure. Should any of the following occur, contact the Dr. who performed your procedure. 1. Redness/inflammation, swelling, chills, or fever, or colored drainage at procedure site within 3-7 days after your procedure. 2. Coldness, discoloration, ongoing numbness, severe pain, or swelling. Expect mild tingling of hand and tenderness at the puncture site for up to three days. If this persists beyond three days, or other symptoms develop, notify the Dr. who performed your procedure. BLEEDING: If the procedure site on your wrist begins to bleed, do not panic 1. Place 1 or 2 fingers firmly just slightly above the insertion site to stop the bleeding. You may be able to feel your pulse as you hold pressure. 2. Lift your finger after 5 minutes to see if the bleeding has stopped. 3. Once the bleeding has stopped, gently wipe the wrist area clean with a bandage. * If the bleeding from your wrist does not stop after 10 minutes, or if there is a large amount of bleeding or spurting, call 911 ([address] drive yourself to the hospital). SKIN IRRITATION: * You may experience some redness and/or swelling in the area where radiation was administered. If any skin irritation occurs, please contact your family physician. FOLLOW UP VISIT: Keep any scheduled doctor appointments. Prescriptions: New metoprolol succinate 25 mg Tablet Extended Release 24 Hr 25 mg PO QAM Qty: 30 RF: 5 aspirin [Ecotrin Low Strength] 81 mg Tablet,Delayed Release (Dr/Ec) 81 mg PO QAM Qty: 30 RF: 12 atorvastatin 80 mg tablet 80 mg PO DAILY Qty: 30 RF: 5 acetaminophen [Tylenol Extra Strength] 500 mg tablet 1,000 mg PO Q8H PRN (Reason: pain) Qty: 60 RF: 0 potassium chloride 20 mEq tablet extended release 20 meq PO DAILY Qty: 30 RF: 0 Continued amlodipine 10 mg tablet 10 mg PO DAILY RF: 0 montelukast [Singulair] 10 mg Tablet 10 mg PO DAILY RF: 0 fluticasone propionate 50 mcg/actuation spray,suspension 2 spray intranasal DAILY RF: 0 fexofenadine [Nicole Allergy] 180 mg Tablet 180 mg PO DAILY RF: 0 Discontinued meloxicam 15 mg Tablet 15 mg PO DAILY RF: 0 Stand-Alone Forms: Jigsee/Other Patient Handouts: Prediabetes, Diabetes Die Set Up Worker Complications, Diabetes Healthy Meals, Diabetes Exercise Benefits, Diabetes Manage A1C Test Discharge Orders: Discharge Order (Routine); Ordered 02/07/19 Ordered By: Everton Olivas Admission Data Admit Date/Time: 02/06/19 16:34 Attending Provider: Everton Olivas Admit Provider: Jed Richards Primary Care Provider: Tapan Irvin Other Providers: Josh Washington ; Jed Richards ; Hong Tinajero Service: Telemetry Other Interventions: Discharge Summary Assessment (RN) Last Done: 02/07/19 17:06 Pending Studies at Discharge: No DC Date/Time DO NOT enter until pt leaves facility: 02/07/19 17:27
[2019-02-08] MEDS ORDERED: METOPROLOL SUCC 25MG EXT REL TAB PO SCH (09:00)
[2019-02-08] MEDS ORDERED: ATORVASTATIN 40 MG TAB PO SCH (09:00)
== END 2019-02-07 17:27 | disposition home or self-care (01) | DRG 282 ==
LOC: SUATTDRO 16:34 → 2S 16:34